=== PATIENT | female | born 1995 ===

== ENCOUNTER 2018-01-12 07:09 | Emergency (ER) | payer BC ==
[2018-01-12 07:30] VITALS: BP 122/80
--- NOTE | 2018-02-16 09:20 | UC ---
Janes Alamo Stephanie, scribed for Tammy Malhotra MD on 01/12/18 at 0752 . Respiratory Complaint HPI - HPI Summary HPI Summary: The pt is a 22 y/o F presenting to with c/o nasal congestion that began . Symptoms include sore throat, cough, WORKMAN and constipation. The pt denies fever and diarrhea. The pt states a few months ago she was sick with thick green mucus. - History of Current Complaint Chief Complaint: UCGeneralIllness Stated Complaint: URI Time Seen by Provider: 01/12/18 07:40 Hx Obtained From: Patient Hx Last Menstrual Period: july 2017 ?: No Onset/Duration: Gradual Onset, Still Present Timing: Constant Severity Currently: Mild Pain Intensity: 4 Pain Scale Used: 0-10 Numeric Character: Cough: Productive Alleviating Factors: Nothing Associated Signs And Symptoms: Positive: Wheezing, Nasal Congestion - Allergies/Home Medications Allergies/Adverse Reactions: Allergies Allergy/AdvReac Type Severity Reaction Status Date / Time gluten Allergy Unknown Verified 01/12/18 07:21 Reaction Details Home Medications: Home Medications Phenylephrine/Dm/Acetaminop/GG [Multi-Symptom Cold Caplet] 1 each PO ONCE [History Confirmed 01/12/18] PMH/Surg Hx/FS Hx/Imm Hx Previously Healthy: Yes Other GI/ History: Celiac Disease - Surgical History Surgical History: None - Family History Known Family History: Negative: Renal Disease - Social History Occupation: Student Lives: Dormitory/Roommates Alcohol Use: Rare Substance Use Type: None Smoking Status (MU): Never Smoked Tobacco Have You Smoked in the Last Year: No Review of Systems Constitutional: Negative Skin: Negative Eyes: Negative ENT: Sore Throat, Sinus Congestion Respiratory: Cough Cardiovascular: Negative Gastrointestinal: Abdominal Pain, Other - constipation Genitourinary: Negative Motor: Negative Neurovascular: Negative Musculoskeletal: Negative Neurological: Headache Psychological: Negative All Other Systems Reviewed And Are Negative: Yes Physical Exam - Summary Physical Exam Summary: Appearance: Well-Nourished Eye Exam: Normal ENT Exam: TM retracted, posterior pharynx red and swollen. Uvula midline Neck: Normal, No adenopathy appreciated Respiratory Exam: no dyspnea, no tachypnea, normal respiratory rate, rhonchi and expiratory wheezes with cough Chest non-tender, Lungs clear, Normal breath sounds, No respiratory distress, No accessory muscle use Cardiovascular Exam: Normal Cardiovascular: Heart rate regular, good general skin color, good capillary refill RRR, No Murmur, Pulses Normal - sitting up. heart rate correlates w left radial pulse (if relevant), Brisk Capillary Refill Abdominal Exam: Normal Abdomen Description: Nontender, No Organomegaly, Soft Bowel Sounds: Present Musculoskeletal Exam: Normal Musculoskeletal: Strength Intact Neurological Exam: Normal: nonfocal, grossly intact Psychological Exam: Normal: conversing easily and appropriately Skin Exam: Normal: no visible or reported rash Triage Information Reviewed: Yes Vital Signs: Initial Vital Signs Temp 97.7 F 01/12/18 07:22 Pulse 67 01/12/18 07:22 Resp 16 01/12/18 07:22 BP 122/80 01/12/18 07:22 Pulse Ox 98 01/12/18 07:22 Vital Signs Reviewed: Yes UC Diagnostic Evaluation - Laboratory O2 Sat by Pulse Oximetry: 98 Respiratory Course/Dx - Course Course Of Treatment: Reviewed coa / tx plan with Ms. Crystal. Questions as posed answered to the best of my ability. - Differential Dx/Diagnosis Provider Diagnoses: Acute uri with bronchitis, bronchospasm. Discharge - Sign-Out/Discharge Documenting (check all that apply): Patient Departure - Discharge - Discharge Plan Condition: Stable Disposition: HOME Prescriptions: Albuterol HFA INHALER* [Ventolin HFA Inhaler*] 1 - 2 puff INH Q4H PRN #1 mdi PRN Reason: Wheezing Azithromyxin KAREN (NF) [Z-Karen (Zithromax) 250 mg tabs #6] 2 tab PO .TODAY, THEN 1 DAILY #6 tab Patient Education Materials: Bronchospasm (ED) Referrals: [facility] [Outside] - 3 Days Additional Instructions: Please follow up with your primary care provider in 1-2 weeks. Seek medical attention for worse or new problems in the meantime. - Billing Disposition and Condition Condition: STABLE Disposition: Home The documentation as recorded by the Janes rahman Stephanie accurately reflects the service I personally performed and the decisions made by me, Tammy Malhotra MD.
== END 2018-01-12 08:07 | disposition home or self-care (01) ==
LOC: UCEAST 07:09
DX: J06.9 Acute upper respiratory infection, unspecified (principal); J20.9 Acute bronchitis, unspecified; K59.00 Constipation, unspecified; K90.0 Celiac disease
CPT/HCPCS: 99202; G0463

== ENCOUNTER 2019-07-06 07:44 | Emergency (ER) | payer BC ==
[2019-07-06 08:00] VITALS: BP 119/77
[2019-07-06] MEDS ORDERED: Cephalexin CAP* 500 MG PO ONE (08:28)
[2019-07-06] MEDS ORDERED: Phenazopyridine TAB* 100 MG PO ONE (08:28)
--- NOTE | 2019-07-06 09:04 | UC ---
Complaint Female HPI - HPI Summary HPI Summary: 23 yo female with dysuria /urgency and frequency x 2 days no fever no back pain no nausea no vag d./c or itch suprapubic pressure - History Of Current Complaint Chief Complaint: UCGU Stated Complaint: URINARY ISSUE Time Seen by Provider: 07/06/19 08:22 Hx Obtained From: Patient Hx Last Menstrual Period: nex-alnon Onset/Duration: Gradual Onset, Lasting Days Timing: Intermittent, Lasting Minutes Severity Initially: Moderate Severity Currently: Mild Pain Intensity: 1 Pain Scale Used: 0-10 Numeric Aggravating Factor(s): Urination Associated Signs And Symptoms: Positive: Negative - Allergies/Home Medications Allergies/Adverse Reactions: Allergies Allergy/AdvReac Type Severity Reaction Status Date / Time gluten Allergy Unknown Verified 07/06/19 08:01 Reaction Details prochlorperazine Allergy Anxiety Verified 07/06/19 08:01 [From Compazine] PMH/Surg Hx/FS Hx/Imm Hx Previously Healthy: Yes - Surgical History Surgical History: None - Family History Known Family History: Negative: Hypertension, Diabetes, Renal Disease - Social History Alcohol Use: Rare Substance Use Type: None Smoking Status (MU): Never Smoked Tobacco Have You Smoked in the Last Year: No Review of Systems All Other Systems Reviewed And Are Negative: Yes Constitutional: Positive: Negative Skin: Positive: Negative Eyes: Positive: Negative ENT: Positive: Negative Respiratory: Positive: Negative Cardiovascular: Positive: Negative Gastrointestinal: Positive: Negative Genitourinary: Positive: Dysuria, Frequency, Urgency Motor: Positive: Negative Neurovascular: Positive: Negative Musculoskeletal: Positive: Negative Neurological: Positive: Negative Psychological: Positive: Negative Physical Exam Triage Information Reviewed: Yes Appearance: Well-Appearing, No Pain Distress, Well-Nourished Vital Signs: Initial Vital Signs Temp 98.6 F 07/06/19 07:55 Pulse 82 07/06/19 07:55 Resp 16 07/06/19 07:55 BP 119/77 07/06/19 07:55 Pulse Ox 100 07/06/19 07:55 Vital Signs Reviewed: Yes Eyes: Positive: Conjunctiva Clear ENT: Positive: Hearing grossly normal. Negative: Nasal congestion, Nasal drainage, Trismus, Muffled voice, Hoarse voice Dental Exam: Normal Neck: Positive: Supple Respiratory: Positive: Lungs clear, Normal breath sounds, No respiratory distress, No accessory muscle use Cardiovascular: Positive: RRR, No Murmur Abdomen Description: Positive: No Organomegaly, Soft. Negative: CVA Tenderness (R), CVA Tenderness (L) Bowel Sounds: Positive: Present Musculoskeletal: Positive: ROM Intact, No Edema Neurological: Positive: Alert Psychological Exam: Normal Skin Exam: Normal Diagnostics - Laboratory Lab Results: UA +++ blood, +++ leuks Complaint Female Dx - Differential Dx/Diagnosis Provider Diagnosis: UTI (urinary tract infection) Discharge ED - Sign-Out/Discharge Documenting (check all that apply): Patient Departure All imaging exams completed and their final reports reviewed: No Studies - Discharge Plan Condition: Stable Disposition: HOME Prescriptions: Cephalexin CAP* [Keflex CAP*] 500 mg PO BID #10 cap Phenazopyridine TAB* [Pyridium TAB*] 100 mg PO TID #6 tab Patient Education Materials: Urinary Tract Infection in Women (ED) Referrals: [facility] [place] [facility] [Outside] - If Needed No Primary Care Phys,NOPCP [Primary Care Provider] - Additional Instructions: a urine culture is pending recheck for fever/vomiting/bad back pain recheck in 2 days if not better - Billing Disposition and Condition Condition: STABLE Disposition: Home
== END 2019-07-06 08:37 | disposition home or self-care (01) ==
LOC: UCEAST 07:44
DX: N39.0 Urinary tract infection, site not specified (principal); Z91.018 Allergy to other foods; Z88.8 Allergy status to other drugs, medicaments and biological substances
CPT/HCPCS: 81003; 87086; 99212; A9270-GY; G0463

== ENCOUNTER 2019-08-02 13:18 | Emergency (ER) | payer BC ==
[2019-08-02 13:30] VITALS: BP 118/72
--- NOTE | 2019-08-02 14:12 | UC ---
Throat Pain/Nasal Jalen HPI - HPI Summary HPI Summary: 23-year-old female presents with one-week history of nasal congestion, sinus pressure, mild sore throat, and occasional dry nonproductive cough. Denies fever, chills, ear pain, dysphagia, chest pain, shortness of breath, abdominal pain, nausea, or vomiting. - History of Current Complaint Chief Complaint: UCGeneralIllness Stated Complaint: HEAD CONGESTION Time Seen by Provider: 08/02/19 13:31 Hx Obtained From: Patient Hx Last Menstrual Period: no period Pain Intensity: 1 - Allergies/Home Medications Allergies/Adverse Reactions: Allergies Allergy/AdvReac Type Severity Reaction Status Date / Time gluten Allergy Unknown Verified 08/02/19 13:25 Reaction Details prochlorperazine Allergy Anxiety Verified 08/02/19 13:25 [From Compazine] Home Medications: Home Medications Cetirizine HCl/Pseudoephedrine [Zyrtec-D Tablet] 1 each PO ONCE 08/02/19 [ History Confirmed 08/02/19] PMH/Surg Hx/FS Hx/Imm Hx Previously Healthy: Yes - Denies significant PMH - Surgical History Surgical History: None - Family History Known Family History: Positive: Non-Contributory - Social History Occupation: Employed Full-time Lives: Alone Alcohol Use: Rare Substance Use Type: Marijuana Substance Use Comment - Amount & Last Used: rare Smoking Status (MU): Never Smoked Tobacco Have You Smoked in the Last Year: No Review of Systems All Other Systems Reviewed And Are Negative: Yes Constitutional: Negative: Fever, Chills Eyes: Negative: Drainage, Eye Redness ENT: Positive: Sore Throat, Nasal Discharge, Sinus Congestion, Sinus Pain/ Tenderness. Negative: Ear Ache Respiratory: Positive: Cough. Negative: Shortness Of Breath Cardiovascular: Negative: Palpitations, Chest Pain Gastrointestinal: Negative: Abdominal Pain, Vomiting, Nausea Genitourinary: Positive: Negative Musculoskeletal: Positive: Negative Neurological: Positive: Negative Is Patient Immunocompromised?: No Physical Exam - Summary Physical Exam Summary: GENERAL APPEARANCE: Well developed, well nourished, alert and cooperative, and appears to be in no acute distress. EYES: Conjunctiva clear. No drainage. EARS: External auditory canals and tympanic membranes clear, hearing grossly intact. NOSE: Moderate-severe nasal congestion with mucosal erythema and edema. No nasal discharge. Maxillary sinus tenderness. THROAT: Pharyngeal cobblestoning. No tonsilar inflammation, swelling, exudate, or lesions. Uvula midline. NECK: Neck supple, non-tender without lymphadenopathy. CARDIAC: Normal S1 and S2. No S3, S4 or murmurs. Rhythm is regular. There is no peripheral edema, cyanosis or pallor. Extremities are warm and well perfused. Capillary refill is less than 2 seconds. Peripheral pulses intact. LUNGS: Clear to auscultation without rales, rhonchi, wheezing or diminished breath sounds. ABDOMEN: Positive bowel sounds. Soft, nondistended, nontender. No guarding or rebound. No masses or hepatosplenomegally. MUSKULOSKELETAL: ROM intact to all extremities. No joint erythema or tenderness. Normal muscular development. Normal gait. SKIN: Skin normal color, texture and turgor with no lesions or eruptions. Triage Information Reviewed: Yes Vital Signs: Initial Vital Signs Temp 99.1 F 08/02/19 13:26 Pulse 71 08/02/19 13:26 Resp 18 08/02/19 13:26 BP 118/72 08/02/19 13:26 Pulse Ox 98 08/02/19 13:26 Vital Signs Reviewed: Yes Throat Pain/Nasal Course/Dx - Course Course Of Treatment: 23-year-old female presents with one-week history of nasal congestion, sinus pressure, mild sore throat, and occasional dry nonproductive cough. Denies fever, chills, ear pain, dysphagia, chest pain, shortness of breath, abdominal pain, nausea, or vomiting. Afebrile. Vital signs stable. Patient had moderate dysphagia nasal congestion with mucosal erythema and edema, x-ray sinus tenderness, pharyngeal cobblestoning without tonsillar swelling or exudate , no cervical lymphadenopathy, clear bilateral breath sounds, and otherwise unremarkable exam. Discussed with patient that her symptoms are likely a sinusitis a viral origin and recommending symptomatic treatment at this time including saline rinses, fluticasone nasal spray, and [id number] decongestant. She is to return here or follow up with her primary care provider in 3-5 days if symptoms are not improving. Anticipatory guidance regarding symptoms were reviewed with the patient. Verbalizes understanding and agrees with plan of care. - Differential Dx/Diagnosis Differential Diagnosis/HQI/PQRI: Influenza, Sinusitis, URI Provider Diagnosis: Acute sinusitis Discharge ED - Sign-Out/Discharge Documenting (check all that apply): Patient Departure All imaging exams completed and their final reports reviewed: No Studies - Discharge Plan Condition: Stable Disposition: HOME Prescriptions: Fluticasone NASAL SPRAY 50MCG* [Flonase NASAL SPRAY 50MCG*] 2 spray BOTH NARES DAILY #1 btl Patient Education Materials: Sinusitis (ED) Referrals: No Primary Care Phys,NOPCP [Primary Care Provider] - [facility] [[facility]] Additional Instructions: Your history and exam are consistent with a sinus infection. Sinus infections without fever are most often caused by a viral infection. Viral infections do not respond to antibiotics and are limited to the treatment of symptoms. Viral infections typically run their course in 7-10 days. Drink plenty of fluids to avoid dehydration especially if you are running any fever. Use a saline rinse kit such as Neti Pot or NeilMed at least twice a day to help thin secretions and promote drainage of the sinuses. Use fluticasone (Flonase) nasal spray 2 sprays each nostril once daily. Use an over the counter decongestant such as Sudafed according to directions to help with congestion. Take over the counter acetaminophen (Tylenol) or ibuprofen (Advil, Motrin) according to directions as needed for pain or fever. Return here or follow up with your primary care provider in 3-5 days if symptoms persist. Seek immediate medical attention in the emergency room if you have fever greater than 100.5 F despite taking acetaminophen or ibuprofen, have chest pain , difficulty breathing, are unable to swallow, or have any worsening of symptoms. - Billing Disposition and Condition Condition: STABLE Disposition: Home
== END 2019-08-02 14:43 | disposition home or self-care (01) ==
LOC: UCEAST 13:18
DX: J01.90 Acute sinusitis, unspecified (principal); J02.9 Acute pharyngitis, unspecified; Z88.8 Allergy status to other drugs, medicaments and biological substances; Z91.09 Other allergy status, other than to drugs and biological substances
CPT/HCPCS: 99212; G0463